=== PATIENT | male | born 1960 | race African-American/Black ===

== ENCOUNTER 2020-07-11 23:17 | Emergency (ER) | payer OTHER ==
[2020-07-11 23:26] VITALS: BP 152/87; PULSE 60; TEMP 97.6; BMI 31.3
[2020-07-12] MEDS ORDERED: IBUPROFEN 600 MG TABLET (FP) PO ONE ×2 (01:25→01:33)
[2020-07-12] MEDS ORDERED: LIDOCAINE 5% TOPICAL PATCH TP ONE (01:25)
[2020-07-12] MEDS ORDERED: METHOCARBAMOL 500 MG TABLET PO ONE (01:25)
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
[2020-07-12] MEDS ORDERED: LIDOCAINE 5% TOPICAL PATCH ONE (01:33)
[2020-07-12] MEDS ORDERED: METHOCARBAMOL 500 MG TABLET ONE (01:33)
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
--- NOTE | 2020-07-12 21:24 | EKG ---
Test Reason : Blood Pressure : / mmHG Vent. Rate : 054 BPM Atrial Rate : 054 BPM P-R Int : 198 ms QRS Dur : 088 ms QT Int : 420 ms P-R-T Axes : 061 064 020 degrees QTc Int : 398 ms SINUS BRADYCARDIA OTHERWISE NORMAL ECG WHEN COMPARED WITH ECG OF 17-MAY-2015 01:36, NO SIGNIFICANT CHANGE WAS FOUND Confirmed by TATI FLOWERS MD ([id number]) on 07/12/2020 9:23:33 PM Referred By: Confirmed By:TATI FLOWERS MD
[2020-07-12] MEDS ORDERED: LIDOCAINE PATCH REMOVAL MC SCH (22:00)
== END 2020-07-12 01:40 | disposition home or self-care (01) ==
LOC: JER 23:17
DX: M25.511 Pain in right shoulder (principal); M54.5 Low back pain; M54.2 Cervicalgia
CPT/HCPCS: 93005; 93010; 99285-25